=== PATIENT | male | born 1995 | race Caucasian/White ===

== ENCOUNTER 2021-05-09 13:24 | Emergency (ER) | payer MEDICAID, OTHER ==
[2021-05-09 14:02] VITALS: BP 139/92; PULSE 106
--- NOTE | 2021-05-09 14:17 | EDM.PDOC ---
ED HPI GENERAL MEDICAL PROBLEM - General Chief Complaint: Drug or Alcohol Abuse Stated Complaint: KIDNEY PAIN Time Seen by Provider: 05/09/21 13:55 Source of Information: Reports: Patient, Old Records, RN Notes Reviewed History Limitations: Reports: No Limitations - History of Present Illness INITIAL COMMENTS - FREE TEXT/NARRATIVE: Patient is a 26-year-old male who presents to the ER for the evaluation of his kidneys hurting. Patient has a longstanding history of drug abuse, his last visit here was just about 5 years ago. He does have a history of methamphetamine use. Patient presents today because he is having some left side pain, that is intermittent. He notes this is sharp stabbing in nature, like a "electrical shock". He also states that he took 2 pills that he found today, he thought they could maybe have been Adderall, but he opened them up and use the powder. He is not having any fevers or chills, cough or shortness of breath, any sort of nausea/vomiting/diarrhea. He has no regular care provider. Patient does appear to have generalized anxiety. Seems to be under the influence of some substance. - Related Data Allergies Allergy/AdvReac Type Severity Reaction Status Date / Time amoxicillin [Amoxicillin] Allergy Severe Rash Verified 05/09/21 14:03 Penicillins Allergy Severe Rash Verified 05/09/21 14:03 Sulfa (Sulfonamide Allergy Severe Rash Verified 05/09/21 14:03 Antibiotics) Home Meds: Home Meds Citalopram [Citalopram HBr] 20 mg PO DAILY 05/09/21 [History] Dextroamphetamine/Amphetamine [Adderall 20 mg Tablet] 20 mg PO BID 05/09/21 [History] Past Medical History Genitourinary History: Reports: Other (See Below) Other Genitourinary History: undescended testical surgery as a child Musculoskeletal History: Reports: Other (See Below) Other Musculoskeletal History: laceration to right finger, pinky and ring after lac with a knife Psychiatric History: Reports: ADHD - Past Surgical History Male Surgical History: Reports: Other (See Below) Other Male Surgeries/Procedures: undescended testicle Social & Family History - Tobacco Use Tobacco Use Status *Q: Current Every Day Tobacco User Years of Tobacco use: 10 Packs/Tins Daily: 1 - Caffeine Use Caffeine Use: Reports: Coffee, Energy Drinks, Soda - Recreational Drug Use Recreational Drug Use: Yes Recreational Drug Type: Reports: Marijuana/Hashish, Other (see below) ED ROS GENERAL - Review of Systems Review Of Systems: Comprehensive ROS is negative, except as noted in HPI. ED EXAM, GENERAL - Physical Exam Exam: See Below Exam Limited By: No Limitations General Appearance: Alert, WD/WN, No Apparent Distress Eye Exam: Bilateral Eye: EOMI, Normal Inspection, PERRL Respiratory/Chest: No Respiratory Distress, Lungs Clear, Normal Breath Sounds, No Accessory Muscle Use, Chest Non-Tender Cardiovascular: Normal Peripheral Pulses, Regular Rate, Rhythm, No Edema Peripheral Pulses: 2+: Radial (L), Radial (R) GI/Abdominal: Normal Bowel Sounds, Soft, Non-Tender, No Distention Extremities: Normal Inspection, Normal Capillary Refill Neurological: Alert, Oriented, Normal Cognition, No Motor/Sensory Deficits Psychiatric: Anxious (generalized; does have the appearance of being acutely intoxicated from some stimulant) Skin Exam: Warm, Dry, Intact, Normal Color, No Rash Course - Vital Signs Last Recorded V/S: Last Vital Signs Temp 96.9 F 05/09/21 14:01 Pulse 106 H 05/09/21 14:01 Resp 20 05/09/21 14:01 BP 139/92 H 05/09/21 14:01 Pulse Ox 100 05/09/21 14:01 - Orders/Labs/Meds Labs: Laboratory Tests 05/09/21 05/09/21 Range/Units 14:15 14:15 WBC 6.33 (4.23-9.07) K/mm3 RBC 4.72 (4.63-6.08) M/mm3 Hgb 14.8 (13.7-17.5) gm/dl Hct 42.7 (40.1-51.0) % MCV 90.5 (79.0-92.2) fl MCH 31.4 (25.7-32.2) pg MCHC 34.7 (32.2-35.5) g/dl RDW Std Deviation 43.9 (35.1-43.9) fL Plt Count 402 H D (163-337) K/mm3 MPV 9.2 L (9.4-12.3) fl Neut % (Auto) 47.6 (34.0-67.9) % Lymph % (Auto) 39.2 (21.8-53.1) % [place] % (Auto) 11.8 (5.3-12.2) % Eos % (Auto) 0.9 (0.8-7.0) Baso % (Auto) 0.3 (0.1-1.2) % Neut # (Auto) 3.01 (1.78-5.38) K/mm3 Lymph # (Auto) 2.48 (1.32-3.57) K/mm3 [place] # (Auto) 0.75 (0.30-0.82) K/mm3 Eos # (Auto) 0.06 (0.04-0.54) K/mm3 Baso # (Auto) 0.02 (0.01-0.08) K/mm3 Manual Slide Review Normal smear Sodium 143 (136-145) mEq/L Potassium 4.0 (3.5-5.1) mEq/L Chloride 104 (98-107) mEq/L Carbon Dioxide 28 (21-32) mEq/L Anion Gap 15.0 (5-15) BUN 16 (7-18) mg/dL Creatinine 1.2 (0.7-1.3) mg/dL Est Cr Clr Drug Dosing 84.92 mL/min Estimated GFR (MDRD) > 60 (>60) mL/min BUN/Creatinine Ratio 13.3 L (14-18) Glucose 75 (70-99) mg/dL Calcium 9.3 (8.5-10.1) mg/dL Total Bilirubin 0.5 (0.2-1.0) mg/dL AST 30 (15-37) U/L ALT 34 (16-63) U/L Alkaline Phosphatase 80 (46-116) U/L Total Protein 7.8 (6.4-8.2) g/dl Albumin 4.4 (3.4-5.0) g/dl Globulin 3.4 gm/dL Albumin/Globulin Ratio 1.3 (1-2) Meds: Medications Discontinued Medications Generic Name Dose Route Start Last Admin Trade Name Freq PRN Reason Stop Dose Admin Magnesium Citrate 296 ml 05/09/21 15:58 05/09/21 16:10 Magnesium Citrate Solution 296 Ml Bottle PO 05/09/21 15:59 296 ml ONETIME ONE Administration - Re-Assessments/Exams Free Text/Narrative Re-Assessment/Exam: 05/09/21 14:18 Patient presents to the ER for the evaluation of his side pains, we will get basic labs, urinalysis and urine drug screen for initial evaluation highly suspect that he is on some sort of stimulant medications that are causing most of his issues at this time. Also get a KUB for evaluation of his abdomen pain, as he does not have a fever and does not look toxic to suggest any other worrisome etiology. 05/09/21 14:43 KUB x-ray does demonstrate quite a diffuse amount of stool throughout the entire colon. This is likely the source of his abdomen pain. If labs are unremarkable, patient be sent home with a bottle of magnesium citrate with the direction of taken a stool softener daily for ongoing management. 05/09/21 15:25 CBC and CMP are unremarkable for any major changes. As far as I am aware patient's not been able to give us a urine sample at this time, we are trying to wait for the urine sample before we try to medicate him much at all. But again I do believe that his abdomen pain is due to the constipation. 05/09/21 15:57 The nursing staff did try to do a straight cath to get urine out of the patient however this was very painful for him, and she did not get enough for a sample, we will go ahead and cancel urinalysis and drug screen, as I again can tell he is on some sort of substance, but he is not psychotic, or causing harm to himself or others at this time. I did tell him he should probably not be taking pills he found on the floor, and he understood at this time. We will however send him home with a bottle of magnesium citrate for management. Departure - Departure Time of Disposition: 15:58 Disposition: Home, Self-Care 01 Condition: Good Clinical Impression: Substance abuse Constipation Qualifiers: Constipation type: other constipation type Qualified Code(s): K59.09 - Other constipation - Discharge Information *PRESCRIPTION DRUG MONITORING PROGRAM REVIEWED*: No *COPY OF PRESCRIPTION DRUG MONITORING REPORT IN PATIENT [place]: No Instructions: Constipation, Adult, [id number], Finding Treatment for Addiction Referrals: PCP,None [Primary Care Provider] - Forms: ED Department Discharge, ED Return to Work/School Form Additional Instructions: You have been evaluated in the ED for constipation. You had labs done at this visit along with abdomen x-rays, these did demonstrate that you are constipated. You have been given a bottle of magnesium citrate, please drink one half bottle, if you do not have a rather large bowel movement in the next few hours, continue with the last half bottle. Please note that you will have some mild abdomen cramping while using this medication, and you may have some looser stools towards the end of use of this medication. You may use Tylenol ibuprofen, every 6 hours as needed for abdomen cramping. Highly recommend that you obtain a stool softener like Dulcolax, Colace, or MiraLAX and use this in your daily regimen, to help keep your stool soft and prevent further constipation. If you do not have a primary care provider already, I recommend that you follow- up with a provider in our clinic, any family practice provider would be able to provide you with the services. Our clinic telephone number [phone], please call in the morning to obtain an appointment with the provider, for follow-up of your symptoms that prompted your ER visit today. Please return to the ED if your symptoms should change or worsen. Sepsis Event Note (ED) - Evaluation Sepsis Screening Result: No Definite Risk - Focused Exam Vital Signs: Vital Signs Temp Pulse Resp BP Pulse Ox 05/09/21 14:01 96.9 F 106 H 20 139/92 H 100
--- NOTE | 2021-05-09 15:01 | CR ---
Abdomen: Supine view of the abdomen was obtained. Comparison: Prior abdominal x-ray of 11/02/15. Bowel gas pattern appears within normal limits. No abnormal calcifications or soft tissue abnormality is seen. Bony structures appear within normal limits. Impression: 1. Nothing acute is seen on supine abdominal x-ray. Diagnostic code #1
[2021-05-09] MEDS ORDERED: Magnesium Citrate Solution 296 ML Bottle PO ONE (15:58)
== END 2021-05-09 16:17 | disposition home or self-care (01) ==
LOC: JD.ED 13:24
DX: K59.09 Other constipation (principal); F15.129 Other stimulant abuse with intoxication, unspecified; Z72.0 Tobacco use; Z88.0 Allergy status to penicillin; Z88.2 Allergy status to sulfonamides
CPT/HCPCS: 36415; 74018; 80053; 85025; 99284; A9270; 99283

== ENCOUNTER 2021-05-25 14:00 | Emergency (ER) | payer MEDICAID, OTHER ==
[2021-05-25 14:09] VITALS: BP 148/94; PULSE 115
[2021-05-25] MEDS ORDERED: Lidocaine 1% with EPINEPHrine 1:100,000 10 ML MDV INJECT ONE (14:23)
--- NOTE | 2021-05-25 14:27 | EDM.PDOC ---
ED HPI GENERAL MEDICAL PROBLEM - General Chief Complaint: Laceration Stated Complaint: ARM LAC Time Seen by Provider: 05/25/21 14:12 Source of Information: Reports: Patient, RN Notes Reviewed History Limitations: Reports: No Limitations - History of Present Illness INITIAL COMMENTS - FREE TEXT/NARRATIVE: Patient is a 26-year-old male who presents to the ER for evaluation of a left wrist laceration. States he was at work, carrying out the garbage, when he got the ulnar aspect of his left wrist caught on the metal garbage can and he ended up with a 2 cm linear laceration to the anterior aspect of his left wrist. Patient is complaining of some mild numbness to his palmar surface of his hand, he has good strength, and can move his hand in all motion and fingers in all mot ion without difficulty. Patient denies any other sick-like symptoms, fever/chills, cough/shortness of breath, nausea/vomiting/diarrhea. He believes he is up-to-date on his tetanus vaccine. Left Wrist Pain Score (Numeric/FACES): 9 - Related Data Allergies Allergy/AdvReac Type Severity Reaction Status Date / Time amoxicillin [Amoxicillin] Allergy Severe Rash Verified 05/25/21 14:09 Penicillins Allergy Severe Rash Verified 05/25/21 14:09 Sulfa (Sulfonamide Allergy Severe Rash Verified 05/25/21 14:09 Antibiotics) Home Meds: Home Meds . [No Known Home Meds] 05/25/21 [History] Past Medical History - Past Health History Medical/Surgical History: Denies Medical/Surgical History Genitourinary History: Reports: Other (See Below) Other Genitourinary History: undescended testical surgery as a child Musculoskeletal History: Reports: Fracture Other Musculoskeletal History: laceration to right finger, pinky and ring after lac with a knife Psychiatric History: Reports: ADHD, Addiction, Anxiety, PTSD - Past Surgical History Male Surgical History: Reports: Other (See Below) Other Male Surgeries/Procedures: undescended testicle Musculoskeletal Surgical History: Reports: Other (See Below) Other Musculoskeletal Surgeries/Procedures:: Wrist Surgery Social & Family History - Tobacco Use Tobacco Use Status *Q: Current Every Day Tobacco User Years of Tobacco use: 10 Packs/Tins Daily: 0.5 - Caffeine Use Caffeine Use: Reports: Coffee, Energy Drinks, Soda - Recreational Drug Use Recreational Drug Use: No ED ROS GENERAL - Review of Systems Review Of Systems: Comprehensive ROS is negative, except as noted in HPI. ED EXAM, SKIN/RASH Exam: See Below Exam Limited By: No Limitations General Appearance: Alert, WD/WN, No Apparent Distress Respiratory/Chest: No Respiratory Distress, Lungs Clear, Normal Breath Sounds, No Accessory Muscle Use, Chest Non-Tender Cardiovascular: Normal Peripheral Pulses, Regular Rate, Rhythm, No Edema Peripheral Pulses: 2+: Radial (L), Radial (R) Extremities: Normal Range of Motion, Normal Capillary Refill Neurological: Alert, Oriented, Normal Cognition, No Motor/Sensory Deficits Psychiatric: Normal Affect, Normal Mood Skin: Warm, Dry, Normal Color, No Rash, Wound/Incision (2cm linear laceration to anterior Left wrist on the ulnar aspect.) ED SKIN PROCEDURES - Laceration/Wound Repair Left Anterior Medial Wrist Appearance: Superficial, Clean Distal NVT: Neuro & Vascular Intact, No Tendon Injury Anesthetic Type: Local Local Anesthesia - Lidocaine (Xylocaine): 1% with EPI Local Anesthetic Volume: 4cc Skin Prep: Chlorhexidine (Hibiciens), Saline Exploration/Debridement/Repair: Wound Explored, In a Bloodless Field, Explored to Base, No Foreign Material Found Closed with: Sutures Lac/Wound length In cm: 2 Suture Size: 4-0 # of Sutures: 7 Suture Type: Prolene, Interrupted, Simple Sterile Dressing Applied: Nurse Tetanus Status Addressed: Yes Complications: No Course - Vital Signs Last Recorded V/S: Last Vital Signs Temp 97.3 F 05/25/21 14:06 Pulse 115 H 05/25/21 14:06 Resp 16 05/25/21 14:06 BP 148/94 H 05/25/21 14:06 Pulse Ox 100 05/25/21 14:06 - Orders/Labs/Meds Meds: Medications Discontinued Medications Generic Name Dose Route Start Last Admin Trade Name Frenarda PRN Reason Stop Dose Admin Lidocaine/Epinephrine 10 ml 05/25/21 14:23 05/25/21 14:47 Lidocaine 1% With Epinephrine 1:100,000 10 Ml Mdv INJECT 05/25/21 14:24 10 ml ONETIME ONE Administration Departure - Departure Time of Disposition: 14:26 Disposition: Home, Self-Care 01 Condition: Good Clinical Impression: Wrist laceration Qualifiers: Encounter type: initial encounter Laterality: left Qualified Code(s): S61.512A - Laceration without foreign body of left wrist, initial encounter - Discharge Information *PRESCRIPTION DRUG MONITORING PROGRAM REVIEWED*: No *COPY OF PRESCRIPTION DRUG MONITORING REPORT IN PATIENT [place]: No Instructions: Sutures, [place], or Adhesive Wound Closure, [id number] Referrals: PCP,None [Primary Care Provider] - Forms: ED Department Discharge, ED Return to Work/School Form Additional Instructions: You have been evaluated in the ED for your laceration. Sutures will need to stay in for 7 to 10 days. You may return to the ED or any clinic for removal. Please keep this area clean and dry, you may cleanse with regular soap and water. No vigorous scrubbing. Please try to avoid submerging the affected area in water for prolonged periods of time until the sutures are removed. Watch out for signs of infection like increased redness, swelling, pain at the laceration site, or if you should develop any fevers or chills. Please return to ED if your symptoms change or worsen. Sepsis Event Note (ED) - Evaluation Sepsis Screening Result: No Definite Risk - Focused Exam Vital Signs: Vital Signs Temp Pulse Resp BP Pulse Ox 05/25/21 14:06 97.3 F 115 H 16 148/94 H 100
== END 2021-05-25 15:55 | disposition home or self-care (01) ==
LOC: JD.ED 14:00
DX: S61.512A Laceration without foreign body of left wrist, initial encounter (principal); Z72.0 Tobacco use; Z88.0 Allergy status to penicillin; Z88.2 Allergy status to sulfonamides; W23.0XXA Caught, crushed, jammed, or pinched between moving objects, initial encounter; Y92.89 Other specified places as the place of occurrence of the external cause; Y99.0 Civilian activity done for income or pay
CPT/HCPCS: 12001; 99282; 99282-25

== ENCOUNTER 2021-06-27 18:41 | Emergency (ER) | payer MEDICAID, OTHER ==
[2021-06-27 19:20] VITALS: BP 125/77; PULSE 86
[2021-06-27] MEDS ORDERED: Ketorolac 60 MG/2 ML SDV IM ONE (19:23)
--- NOTE | 2021-06-27 19:46 | EDM.PDOC ---
ED HPI GENERAL MEDICAL PROBLEM - General Chief Complaint: Headache Stated Complaint: SWABBED FOR COVID AT CLINIC/HEADACHE Time Seen by Provider: 06/27/21 19:19 Source of Information: Reports: Patient, RN Notes Reviewed History Limitations: Reports: No Limitations - History of Present Illness INITIAL COMMENTS - FREE TEXT/NARRATIVE: Patient is a 26-year-old male who presents to the ER for a headache. Patient was seen in the walk-in clinic earlier today, swabbed for COVID-19 but is unaware of the results at this time. Patient states that he has had a headache, more so to the left side of his head, and seems to stay behind his left eye. He has had no fevers or chills, but has had some nausea but no vomiting or diarrhea. Patient has not taken any medications for the headache. States he does have a history of headaches. Patient states that he has been around his father, and his father's girlfriend, who were positive for Covid 2 days ago. Patient is concerned he might have COVID-19 at this time. Headache Pain Score (Numeric/FACES): 7 - Related Data Allergies Allergy/AdvReac Type Severity Reaction Status Date / Time amoxicillin [Amoxicillin] Allergy Intermediate Rash Verified 06/27/21 19:21 Penicillins Allergy Intermediate Rash Verified 06/27/21 19:21 Sulfa (Sulfonamide Allergy Intermediate Rash Verified 06/27/21 19:21 Antibiotics) Home Meds: Home Meds . [No Known Home Meds] 05/25/21 [History] Past Medical History - Past Health History Medical/Surgical History: Denies Medical/Surgical History Genitourinary History: Reports: Other (See Below) Other Genitourinary History: undescended testical surgery as a child Musculoskeletal History: Reports: Fracture Other Musculoskeletal History: laceration to right finger, pinky and ring after lac with a knife Psychiatric History: Reports: ADHD, Addiction, Anxiety, PTSD - Past Surgical History Male Surgical History: Reports: Other (See Below) Other Male Surgeries/Procedures: undescended testicle Musculoskeletal Surgical History: Reports: Other (See Below) Other Musculoskeletal Surgeries/Procedures:: Wrist Surgery Social & Family History - Tobacco Use Tobacco Use Status *Q: Current Every Day Tobacco User Years of Tobacco use: 12 Packs/Tins Daily: 0.4 - Caffeine Use Caffeine Use: Reports: Coffee, Energy Drinks, Soda - Recreational Drug Use Recreational Drug Use: No ED ROS GENERAL - Review of Systems Review Of Systems: Comprehensive ROS is negative, except as noted in HPI. - Physical Exam Exam: See Below Exam Limited By: No Limitations General Appearance: Alert, WD/WN, No Apparent Distress Respiratory/Chest: No Respiratory Distress, Lungs Clear, Normal Breath Sounds, No Accessory Muscle Use, Chest Non-Tender Cardiovascular: Normal Peripheral Pulses, Regular Rate, Rhythm, No Edema GI/Abdominal: Normal Bowel Sounds, Soft, Non-Tender, No Distention, No Mass Neuro Exam (Abbreviated): Alert, Oriented, Normal Cognition, No Motor/Sensory Deficits Extremities: Normal Inspection, Normal Capillary Refill Psychiatric: Normal Affect, Normal Mood Skin Exam: Warm, Dry, Intact, Normal Color, No Rash Course - Vital Signs Last Recorded V/S: Last Vital Signs Temp 97.8 F 06/27/21 19:18 Pulse 86 06/27/21 19:18 Resp 16 06/27/21 19:18 BP 125/77 06/27/21 19:18 Pulse Ox 98 06/27/21 19:18 - Orders/Labs/Meds Meds: Medications Discontinued Medications Generic Name Dose Route Start Last Admin Trade Name Freq PRN Reason Stop Dose Admin Ketorolac Tromethamine 60 mg 06/27/21 19:23 06/27/21 20:03 Ketorolac 60 Mg/2 Ml Sdv IM 06/27/21 19:24 60 mg ONETIME ONE Administration - Re-Assessments/Exams Free Text/Narrative Re-Assessment/Exam: 06/27/21 19:44 Patient presents to the ER for evaluation of his headache. I was able to call the walk-in clinic and talk with the provider, and they did tell me that his Covid screen did come back not detected for today's purposes. Nonetheless with the positive exposure of his father and father's girlfriend, it is likely that he does have it, and that the test was just negative. I will have him go home, isolate over the weekend and have him call the Covid clinic on Wednesday to obtain an appointment either Wednesday or early Wednesday for reevaluation or have him represent to the walk-in clinic for testing. Departure - Departure Time of Disposition: 19:45 Disposition: Home, Self-Care 01 Condition: Good Clinical Impression: Suspected 2019-nCoV infection Headache Qualifiers: Headache type: other headache syndrome Qualified Code(s): G44.89 - Other headache syndrome - Discharge Information *PRESCRIPTION DRUG MONITORING PROGRAM REVIEWED*: No *COPY OF PRESCRIPTION DRUG MONITORING REPORT IN PATIENT [place]: No Instructions: General Headache Without Cause, Sulr-oi-[id number], COVID-19: Quarantine vs. Isolation - [facility] (10/17/2020), COVID-19: What to Do if You Are Sick - [facility] (10/31/2020) Referrals: PCP,None [Primary Care Provider] - Forms: ED Department Discharge, ED Return to Work/School Form Additional Instructions: You were seen in the ER today for ongoing and/or worsening respiratory symptoms. You did have a COVID-19 screen done at the walk-in clinic earlier today, and the results of this test were negative for today's purposes. Just because the test come back negative, does not mean that you do not in fact have COVID-19. Highly and strongly recommend that you isolate yourself away from others for the weekend, and call our clinic at [phone] to obtain an appointment at the Covid clinic either Wednesday or early Wednesday for reevaluation and management. You may also represent to the walk-in clinic at any time for reevaluation and retesting if symptoms do not seem to be improving. Please try to increase your oral fluid intake, and eat multiple small meals throughout the day, to keep yourself healthy. You need to keep yourself nourished in order to fight off this disease. You can try a liquid diet like gatorade/powerade as well to get your electrolytes. You may take 500 mg Tylenol every hours 6 hours for pain/fever relief. Do not exceed 4000 mg Tylenol in a 24-hour time span. However, running a fever is your body's natural response to illness, and it allows the body to develop antibodies to disease, we are recommending trying to limit the use of Tylenol as much as possible to allow your body's natural immune response. Due to your exposure to your father, and father's girlfriend that did have COVID-19, it is highly likely that you are infected with COVID-19, but the test was negative. Again I highly and strongly recommend that you quarantine or self isolate from others, until you can get retested in 2 or 3 days. Sepsis Event Note (ED) - Focused Exam Vital Signs: Vital Signs Temp Pulse Resp BP Pulse Ox 06/27/21 19:18 97.8 F 86 16 125/77 98
== END 2021-06-27 20:33 | disposition home or self-care (01) ==
LOC: JD.ED 18:41
DX: G44.89 Other headache syndrome (principal); Z72.0 Tobacco use; Z88.0 Allergy status to penicillin; Z88.2 Allergy status to sulfonamides; Z20.822 Contact with and (suspected) exposure to COVID-19
CPT/HCPCS: 96372; 99283; J1885

== ENCOUNTER 2021-07-12 05:33 | Emergency (ER) | payer OTHER ==
[2021-07-12 05:40] VITALS: BP 131/74; PULSE 116
[2021-07-12] MEDS ORDERED: Ondansetron 4 MG Tab.DIS PO ONE (05:51)
[2021-07-12] MEDS ORDERED: Acetaminophen 325 MG Tab PO ONE (05:51)
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
== END 2021-07-12 06:24 | disposition home or self-care (01) ==
LOC: JD.ED 05:33
DX: S00.03XA Contusion of scalp, initial encounter (principal); Z88.0 Allergy status to penicillin; Z88.1 Allergy status to other antibiotic agents; Z88.2 Allergy status to sulfonamides; Z72.0 Tobacco use; V49.10XA Passenger injured in collision with unspecified motor vehicles in nontraffic accident, initial encounter; Y92.410 Unspecified street and highway as the place of occurrence of the external cause
CPT/HCPCS: 99284; A9270; 99283

== ENCOUNTER 2021-07-26 18:43 | Emergency (ER) | payer MEDICAID, OTHER | END 2021-07-26 18:45 | LOC: JD.ED 18:43 | DX: R06.02 Shortness of breath (principal); Z53.21 Procedure and treatment not carried out due to patient leaving prior to being seen by health care provider ==